=== PATIENT | female | born 1935 | race Caucasian/White ===

== ENCOUNTER 2019-02-25 20:47 | Emergency (ER) | payer MEDICARE ==
[~2019-02-25] VITALS: Ht 152.4 cm; Wt 62.8 kg
[2019-02-25] MEDS ORDERED: IBUP-2354 PO (21:15)
[2019-02-25] MEDS ORDERED: ACET500C4 PO (21:15)
[2019-02-25] MEDS ORDERED: MIRT15 PO (21:15)
[2019-02-25] MEDS ORDERED: DULO20CA30 PO (21:15)
[2019-02-25] MEDS ORDERED: HYDR25TA PO (21:15)
[2019-02-25] MEDS ORDERED: LOPE1LIQ88 PO (21:15)
[2019-02-25] MEDS ORDERED: LEVO75 PO (21:15)
[2019-02-25 21:21] LABS: CALCIUM, TOTAL 10.4 mg/dL (8.8-10.5); CREATININE 1.37 mg/dL (0.60-1.30); POTASSIUM 3.1 mmol/L (3.5-5.1)
[2019-02-25 21:24] LABS: PROTHROMBIN TIME 10.9 SEC (9.4-11.6)
[2019-02-25 21:27] LABS: ALBUMIN 3.8 g/dL (3.4-5.0); BILIRUBIN,TOTAL 1.1 mg/dL (0.1-1.0); TOTAL PROTEIN, SERUM 7.2 g/dL (6.4-8.2)
[2019-02-25] MEDS ORDERED: LORazepam 2 MG/ML VIAL IVP ONE ×2 (21:45→22:15)
[2019-02-25] MEDS ORDERED: POTASSIUM CHL 10 MEQ/WATER 50 ML IV ONE (21:45)
[2019-02-25 21:59] LABS: BASOPHILS % (AUTO) 0.5 % (0.0-2.0); EOSINOPHILS % (AUTO) 0.7 % (1.0-6.0); HEMATOCRIT 43.4 % (36-46); HEMOGLOBIN 13.7 g/dL (12.0-16.0); LYMPHOCYTES # (AUTO) 5.3 K/uL (1.0-4.8); LYMPHOCYTES % (AUTO) 27.4 % (22.0-44.0); MEAN CORPUSCULAR HGB CONC 31.7 G/dL (31.0-37.0); MEAN CORPUSCULAR VOLUME 92 fL (80-100); MONOCYTES # (AUTO) 1.6 K/uL (0.1-1.0); NEUTROPHILS # (AUTO) 12.2 K/uL (1.8-7.7); NEUTROPHILS % (AUTO) 63.4 % (40.0-70.0); PLATELET COUNT (AUTO) 422 K/uL (150-450); RED BLOOD CELL COUNT(AUTO) 4.73 MIL/uL (4.00-5.20); RED CELL DISTRIBUTION WIDTH 14.3 % (11.5-14.5)
[2019-02-25] MEDS ORDERED: LevETIRAcetam 500 MG in DEXTROSE 5%-WATER 100 ML IV ONE (22:45)
[2019-02-25 23:22] VITALS: BP 102/52
[2019-02-25 23:33] LABS: APPEARANCE,URINE CLOUDY (CLEAR); BILIRUBIN,URINE NEGATIVE (NEGATIVE); GLUCOSE, URINE (UA) NEGATIVE (NEGATIVE); KETONES,URINE NEGATIVE (NEGATIVE); LEUKOCYTE ESTERASE ,URINE SMALL (NEGATIVE); NITRATE,URINE NEGATIVE (NEGATIVE); OCCULT BLOOD,URINE NEGATIVE (NEGATIVE); PROTEIN,URINE SEE CONFIRM (NEGATIVE); UROBILINOGEN,URINE 0.2 mg/dL (<=1.0)
[2019-02-25 23:38] LABS: AMPHET/METH SCREEN,URINE NEGATIVE (NEGATIVE); BARBITURATE SCREEN, URINE NEGATIVE (NEGATIVE); BENZODIAZEPINES SCREEN,URINE NEGATIVE (NEGATIVE); CANNABINOID SCREEN,URINE NEGATIVE (NEGATIVE); COCAINE SCREEN,URINE NEGATIVE (NEGATIVE); METHADONE SCREEN, URINE NEGATIVE (NEGATIVE); OPIATE SCREEN,URINE NEGATIVE (NEGATIVE); PHENCYCLIDINE SCREEN,URINE NEGATIVE (NEGATIVE)
[2019-02-25 23:40] LABS: BACTERIA,URINE Rare /HPF (None Seen); MUCUS,URINE Rare LPF (None Seen); SQUAMOUS EPITHELIAL CELL,UR Rare /LPF (None Seen); SULFOSALICYLIC ACID,URINE Trace (Negative)
== END 2019-02-25 23:39 | disposition short-term general hospital (02) ==
LOC: EMS 20:48
DX: I63.9 Cerebral infarction, unspecified (principal); G40.419 Other generalized epilepsy and epileptic syndromes, intractable, without status epilepticus
CPT/HCPCS: 36415; 70450; 71045; 80053; 80307; 81001; 84484; 85025; 85610; 85730; 86850; 86900; 86901; 93005; 96365; 96367; 96375; 96376; 99291; J0712; J2060; J3480; J7060

== ENCOUNTER 2020-03-20 15:48 | Emergency (ER) | payer MEDICARE ==
[~2020-03-20] VITALS: Ht 153 cm; Wt 58.0 kg
[~2020-03-20 15:48] MED LIST: ACET500C4 PO; DULO20CA27 PO; HYDR-1475 PO; IBUP-2271 PO; LEVO75 PO; LOPE-202 PO; MIRT-89 PO
[2020-03-20] MEDS ORDERED: LEVE500T53 PO (15:54)
[2020-03-20] MEDS ORDERED: APIX5TAB PO (15:54)
[2020-03-20] MEDS ORDERED: DONE5TAB5 PO (15:54)
[2020-03-20 16:15] LABS: BASOPHILS % (AUTO) 1.5 % (0.0-2.0); EOSINOPHILS % (AUTO) 1.9 % (1.0-6.0); HEMATOCRIT 40.1 % (36-46); HEMOGLOBIN 12.9 g/dL (12.0-16.0); LYMPHOCYTES # (AUTO) 1.4 K/uL (1.0-4.8); LYMPHOCYTES % (AUTO) 27.6 % (22.0-44.0); MEAN CORPUSCULAR HEMOGLOBIN 29.2 pg (26.0-34.0); MEAN CORPUSCULAR HGB CONC 32.2 G/dL (31.0-37.0); MEAN CORPUSCULAR VOLUME 90 fL (80-100); MONOCYTES # (AUTO) 0.3 K/uL (0.1-1.0); MONOCYTES % (AUTO) 6.5 % (2.0-9.0); NEUTROPHILS # (AUTO) 3.1 K/uL (1.8-7.7); NEUTROPHILS % (AUTO) 62.5 % (40.0-70.0); PLATELET COUNT (AUTO) 351 K/uL (150-450); RED BLOOD CELL COUNT(AUTO) 4.43 MIL/uL (4.00-5.20); RED CELL DISTRIBUTION WIDTH 14.7 % (11.5-14.5)
[2020-03-20 16:25] LABS: CALCIUM, TOTAL 10.2 mg/dL (8.8-10.5); CREATININE 1.15 mg/dL (0.60-1.30); POTASSIUM 4.2 mmol/L (3.5-5.1)
[2020-03-20 16:30] LABS: ALBUMIN 4.1 g/dL (3.4-5.0); BILIRUBIN,TOTAL 0.6 mg/dL (0.1-1.0); TOTAL PROTEIN, SERUM 7.6 g/dL (6.4-8.2)
[2020-03-20 16:34] LABS: INR 1.1 (0.9-1.1); PROTHROMBIN TIME 11.8 SEC (9.4-11.6)
[2020-03-20 17:37] VITALS: BP 129/63
== END 2020-03-20 18:30 | disposition home or self-care (01) ==
LOC: EMS 15:50
DX: R79.9 Abnormal finding of blood chemistry, unspecified (principal); R51 Headache; R35.0 Frequency of micturition; I10 Essential (primary) hypertension; Z90.89 Acquired absence of other organs; Z90.710 Acquired absence of both cervix and uterus
CPT/HCPCS: 93005; 36415-L1; 36415-TC; 71045-TC